=== PATIENT | female | born 1955 | race Caucasian/White ===

== ENCOUNTER 2018-01-04 06:29 | Day surgery (SDC) | payer OTHER ==
[2018-01-04] VITALS (8 sets, daily range): BP systolic 103–136; BP diastolic 60–76; PULSE 68–84; RESP 16–20; TEMP 97.5–98.4; O2SAT 93
[~2018-01-04] VITALS: Ht 157.5 cm; Wt 57.0 kg
[~2018-01-04 06:29] MED LIST: ADVAI100I PO; ADVAI500I PO; ALBU8I INH; DIAZ5 PO; LORTA10 PO; LORTA5 PO; OMEP20TA39 PO; OXYM10TA5; REME30TA PO; SOMA350T PO; SONATA PO
[2018-01-04] MEDS ORDERED: DIAZ5TAB PO (07:04)
[2018-01-04] MEDS ORDERED: HYDR-3366 PO (07:04)
[2018-01-04] MEDS ORDERED: OMEP20TA93 PO (07:04)
[2018-01-04] MEDS ORDERED: MIRT30TA PO (07:04)
[2018-01-04] MEDS ORDERED: ADVA250A INH (07:04)
[2018-01-04] MEDS ORDERED: ALBUAER3 (07:04)
[2018-01-04] MEDS ORDERED: RANI300T PO (07:04)
[2018-01-04] MEDS ORDERED: OXYC5CAP43 (07:04)
[2018-01-04] MEDS ORDERED: SODIUM CHLOR 0.9% 1000 ML IV SCH (07:15)
[2018-01-04] MEDS ORDERED: fentaNYL CITRATE 250 MCG/5 ML AMP ONE (08:04)
[2018-01-04] MEDS ORDERED: MIDAZOLAM HCL 5 MG/5 ML VIAL ONE (08:04)
--- NOTE | 2018-01-04 09:15 | PD.RAD ---
Post CT Procedure Prog Note Pre Procedure Diagnosis: (1) Mass of left lung Post Procedure Diagnosis: (1) Mass of left lung Procedure Date: Jan 04, 2018 Supervising Radiologist: Ashok Velazquez Anesthesia: Local, Analgesia, Conscious Sedation Plan of Activity Patient to Unit: [facility] Patient Condition: Good See PACS Report for procedural detail/treatment Biopsy Imaging Guidance: CT Side: Left Biopsy Procedure: Lung Specimen: Core Biopsy, Fine Needle Aspirate (for C&S) Ashok Velazquez MD Jan 04, 2018 09:15
--- NOTE | 2018-01-04 10:31 | RADRPT ---
EXAM DATE/TIME: 01/04/2018 10:12 [facility] COMPARISON: No previous studies available for comparison. INDICATIONS : Post right lung biopsy. MEDICAL HISTORY : Chronic obstructive pulmonary disease. Gastroesophageal reflux disease. asthma SURGICAL HISTORY : None. ENCOUNTER: Subsequent ACUITY: 1 day PAIN SCORE: 0/10 LOCATION: Right chest FINDINGS: Upright portable expiratory view of the chest post right lung biopsy demonstrates no pneumothorax. T he there is crowding of the bronchopulmonary markings characteristic of expiratory film. Both hemidi aphragms are well delineated. Healed fracture left clavicle. Right shoulder prosthesis. CONCLUSION: No evidence of pneumothorax status post right lung biopsy. Stan Sawyer MD on January 04, 2018 at 10:27 Board Certified Radiologist. This report was verified electronically.
--- NOTE | 2018-01-04 11:37 | RADRPT ---
EXAM DATE/TIME: 01/04/2018 08:41 [facility] COMPARISON: No previous studies available for comparison. INDICATIONS : Left lung mass. SEDATION TIME: 30 minutes BIOPSY SITE: Left MEDICATION(S): 1.) 5 mg midazolam (Versed) IV 2.) 250 mcg fentanyl (Sublimaze) IV DEVICE(S): 1.) 18 gauge Temno core biopsy needle MEDICAL HISTORY : Chronic obstructive pulmonary disease. SURGICAL HISTORY : Hysterectomy. Appendectomy. ENCOUNTER: Initial ACUITY: 1 day PAIN SCORE: 0/10 LOCATION: Left chest A total of one core specimen(s) were obtained and sent to the laboratory for pathologic evaluation. PROCEDURE: 1. CT guided lung biopsy. 2. Conscious sedation with continuous EKG and oximetry monitoring. 3. EKG and oximetry remained stable throughout the procedure. Prior to the procedure informed consent was obtained. Any appropriate prior imaging studies were rev iewed. Using automated exposure control and adjustment of the mA and/or kV according to patient size, radiation dose was kept as low as reasonably achievable to obtain optimal diagnostic quality images. DICOM format image data is available electronically for review and comparison. The site was prepped in a sterile fashion. Full sterile technique was used, including cap, mask, nile rile gloves and gown and a large sterile sheet. Hand hygiene and 2% chlorhexidine and/or betadine/al cohol prep was utilized per protocol for cutaneous antisepsis. The skin and subcutaneous tissues wer e infiltrated with local anesthetic solution. With CT guidance the previously identified target was localized. Biopsy was performed using the presc ribed needle as above. Adequate hemostasis was obtained with compression at the puncture site. Follow-up CT scan reveals no pneumothorax. Conscious sedation was performed with the prescribed dosages and duration as above in the presence of an independent trained radiology nurse to assist in the monitoring of the patient. EKG and oximetry remained stable throughout the procedure. The patient tolerated the procedure well and there were no complications. The patient was sent to Radiology Outpatient Unit in stable condition. CONCLUSION: Uncomplicated CT guided biopsy. Single 18 gauge core biopsy obtained. 22 gauge FNA also obtained for culture and sensitivity. Ashok Velazquez MD on January 04, 2018 at 11:33 Board Certified Radiologist. This report was verified electronically.
--- NOTE | 2018-01-04 13:37 | RADRPT ---
EXAM DATE/TIME: 01/04/2018 12:35 [facility] COMPARISON: CHEST EXPIRATION ONLY, January 04, 2018, 10:12. INDICATIONS : Post left side biopsy MEDICAL HISTORY : Chronic obstructive pulmonary disease. Gastroesophageal reflux disease. SURGICAL HISTORY : Appendectomy. Hysterectomy. ENCOUNTER: Initial ACUITY: 1 day PAIN SCORE: 6/10 LOCATION: Bilateral chest FINDINGS: There are mild chronic interstitial changes within the pulmonary parenchyma. The lungs are otherwise clear. The heart is mildly enlarged. There are degenerative changes within the right shoulder. CONCLUSION: 1. Chronic interstitial changes. 2. Stable compared to previous examination dated 01/04/18. Karlo Daniel MD on January 04, 2018 at 13:33 Board Certified Radiologist. This report was verified electronically.
== END 2018-01-04 13:15 | disposition home or self-care (01) ==
LOC: HRAD 06:29 → HRIP 06:30 → HRAD 13:15
DX: R91.8 Other nonspecific abnormal finding of lung field (principal); J44.9 Chronic obstructive pulmonary disease, unspecified; K21.9 Gastro-esophageal reflux disease without esophagitis
CPT/HCPCS: 32405; 71045; 77012; 87070; 87176; 87205; 88305; 88333; 99152; 99153; J2250; J3010